=== PATIENT | female | born 1975 ===

== ENCOUNTER 2017-01-25 08:48 | Emergency (ER) | payer MEDICAID ==
[2017-01-25 08:55] VITALS: BMI 31.4
[2017-01-25 08:56] VITALS: RESP 18; TEMP 97.7; O2SAT 98
--- NOTE | 2017-01-25 09:46 | C.PDOC ---
History Of Present Illness 41 year old patient is transferred to the ED requesting a medicinal refill of Labetolol. Patient states she ran out 2 days ago. Patient was diagnosed with hypertension when she was s/p on 12/19. Patient denies any prior history of hypertension, chest pain, palpitations, shortness of breath, nausea, vomiting, headache, dizziness, or any other associated symptoms. VIA TRANS REQUESTING MED REFILL LABETOLOL. RAN OUT 2 DAYS AGO. DX HTN WHEN S/P CSECT 12/19. DENIES PRIOR HO HTN, ANY ASSOC SX EXAM NEG MDM ADVISED HAS NORMAL PRESSURE. PENDIND PMD FU APPT 02/10 Time Seen by Provider: 01/25/17 09:23 Chief Complaint (Nursing): Medical Clearance History Per: Patient History/Exam Limitations: no limitations Onset/Duration Of Symptoms: Days (2) Severity: None Pain Scale Rating Of: 0 Recent travel outside of the [place]: No Past Medical History Reviewed: Historical Data, Nursing Documentation, Vital Signs Vital Signs: Last Vital Signs Temp 97.7 F 01/25/17 08:55 Pulse 70 01/25/17 10:01 Resp 18 01/25/17 10:01 BP 114/82 01/25/17 10:01 Pulse Ox 98 01/25/17 10:01 Family History: States: Unknown Family Hx - Social History Hx Tobacco Use: No Hx Alcohol Use: No Hx Substance Use: No - Immunization History Hx Tetanus Toxoid Vaccination: Yes Hx Influenza Vaccination: No Hx Pneumococcal Vaccination: No Review Of Systems Except As Marked, All Systems Reviewed And Found Negative. Cardiovascular: Negative for: Chest Pain, Palpitations Respiratory: Negative for: Shortness of Breath Gastrointestinal: Negative for: Nausea, Vomiting Neurological: Negative for: Headache, Dizziness Physical Exam - Physical Exam Appears: Non-toxic, No Acute Distress Skin: Warm, Dry Head: Atraumatic, Normacephalic Eye(s): bilateral: Normal Inspection, EOMI Oral Mucosa: Moist Neck: Normal ROM, Supple Chest: Symmetrical Cardiovascular: Rhythm Regular Respiratory: Normal Breath Sounds, No Rales, No Rhonchi, No Wheezing Back: Normal Inspection Extremity: Normal ROM Neurological/Psych: Oriented x3, Normal Speech, Normal Cognition Gait: Steady ED Course And Treatment O2 Sat by Pulse Oximetry: 98 (room air) Pulse Ox Interpretation: Normal Medical Decision Making Medical Decision Making: Patient is advised that she has a normal pressure. She is pending a follow up appointment with her PMD on 02/10/17. Disposition Counseled Patient/Family Regarding: Diagnosis, Need For Followup - Disposition Referrals: YOUR,PMD [Other] Disposition: HOME/ ROUTINE Disposition Time: 09:46 Condition: GOOD Forms: General Discharge Instructions - Clinical Impression Clinical Impression: Medical assessment - Scribe Statement The provider has reviewed the documentation as recorded by the Jay Jayibpanda Kathleen Provider Attestation: All medical record entries made by the Jay Jayibe were at my direction and personally dictated by me. I have reviewed the chart and agree that the record accurately reflects my personal performance of the history, physical exam, medical decision making, and the department course for this patient. I have also personally directed, reviewed, and agree with the discharge instructions and disposition.
[2017-01-25 10:02] VITALS: BP 114/82; PULSE 70
== END 2017-01-25 10:22 | disposition home or self-care (01) ==
LOC: C.ER 08:48
DX: Z00.00 Encounter for general adult medical examination without abnormal findings (principal)